=== PATIENT | male | born 1975 | race African-American/Black ===

== ENCOUNTER 2020-03-09 10:45 | Outpatient (CLI) | payer OTHER, SELFPAY | END 2020-03-09 10:46 | disposition home or self-care (01) | LOC: ANHAUDIO 10:46 | DX: H90.3 Sensorineural hearing loss, bilateral (principal) | CPT/HCPCS: 92557; 92567 ==

== ENCOUNTER 2020-04-19 12:30 | Outpatient (RCR) | payer OTHER, SELFPAY | END 2020-04-19 23:59 | disposition home or self-care (01) | LOC: ANHAUDIO 12:30 | DX: Z46.1 Encounter for fitting and adjustment of hearing aid (principal) | CPT/HCPCS: 99199; V5014; V5160; V5260 ==

== ENCOUNTER 2021-02-13 11:00 | Outpatient (RCR) | payer OTHER, SELFPAY | END 2021-02-13 23:59 | disposition home or self-care (01) | LOC: ANHAUDIO 11:00 | DX: Z46.1 Encounter for fitting and adjustment of hearing aid (principal) | CPT/HCPCS: 99199; V5014 ==

== ENCOUNTER 2021-07-31 10:40 | Outpatient (RCR) | payer OTHER, SELFPAY | END 2021-07-31 23:59 | disposition home or self-care (01) | LOC: ANHAUDIO 10:40 | PROVIDERS: Visit Provider Nurse Practitioner Adult Health | DX: Z46.1 Encounter for fitting and adjustment of hearing aid (principal) | CPT/HCPCS: 92546; 99199 ==

== ENCOUNTER 2022-02-04 12:55 | Outpatient (RCR) | payer OTHER, SELFPAY | END 2022-02-04 23:59 | disposition home or self-care (01) | LOC: ANHAUDIO 12:55 | DX: Z46.1 Encounter for fitting and adjustment of hearing aid (principal) | CPT/HCPCS: 99199 ==